=== PATIENT | male | born 1955 | race Caucasian/White ===

== ENCOUNTER 2016-10-17 13:58 | Emergency (ER) | payer MEDICAID ==
[~2016-10-17] VITALS: Ht 177.8 cm; Wt 102.1 kg
[2016-10-17 14:15] VITALS: BP 183/96
[2016-10-17 14:42] VITALS: BP 183/96
[2016-10-17] MEDS ORDERED: Norco 10mg/325mg tab ORAL ONE (14:45)
--- NOTE | 2016-10-17 20:43 | Emergency Room Report ---
History of Present Illness General Chief Complaint: Medication Refill Source: Patient Present Illness HPI The patient is a [id number] male with a history of psoriatic arthritis presenting for exacerbation of chronic pain. He states that he has been under pain management but has run out of medication. Is unable to see pain management for the next week. Pain is a 10/10 dull ache primarily to the the hands. He states this is normal for his arthritis. He was recently given a prescription for methadone. He denies any other symptoms Allergies: Coded Allergies: No Known Allergies (Unverified , 10/17/16) Patient History Past Medical History: see triage record Pertinent Family History: none Reviewed Nursing Documentation: PMH: Agreed, PSxH: Agreed Nursing Documentation-PMH Past Medical History: No History, Except For Hx Hypertension: Yes Hx Diabetes: Yes Review of Systems All Other Systems: negative except mentioned in HPI Physical Exam Vital Signs Date Time Temp Pulse Resp B/P Pulse Ox O2 Delivery O2 Flow Rate FiO2 10/17/16 14:01 97.9 79 16 183/96 98 Room Air Sp02 EP Interpretation: reviewed, normal General Appearance: no apparent distress, alert, GCS 15, non-toxic Head: normocephalic, atraumatic Eyes: bilateral eye PERRL, bilateral eye normal inspection ENT: hearing grossly normal, normal pharynx, no angioedema, normal voice Neck: full range of motion, supple/symm/no masses Musculoskeletal: decreased range of motion, swelling - bilat hands and fingers , tender - diffuse extremity pain Neurologic: alert, oriented x3, responsive, motor strength/tone normal, sensory intact, speech normal Psychiatric: judgement/insight normal, memory normal, mood/affect normal, no suicidal/homicidal ideation Skin: normal color, no rash, warm/dry, well hydrated Medical Decision Making PA Attestation Dr. Hewitt is my supervising physician. Patient management was discussed with my supervising physician Diagnostic Impression: Primary Impression: Psoriatic arthritis Additional Impressions: Encounter for medication refill Chronic pain Qualified Codes: G89.29 - Other chronic pain ER Course The patient is a [id number] male with a history of psoriatic arthritis presenting for exacerbation of chronic pain Differential diagnoses considered but not limited to: Psoriatic arthritis, rheumatoid arthritis, infection, fracture, chronic pain, pain medication seeking behavior, among others Physical exam: Afebrile. No apparent distress There is diffuse swelling and pain over both hands. Skin shows signs of psoriasis. Cures report shows 180 tablets of methadone were given on September 24 for a 30 day supply. The patient was informed that his 30 day supply did not last 30 days. He is given 1 [place] in the ER and needs to seek care by a pain management physician. He agrees. ER precautions are given Last Vital Signs Date Time Temp Pulse Resp B/P Pulse Ox O2 Delivery O2 Flow Rate FiO2 10/17/16 15:29 97.9 10/17/16 14:42 79 16 183/96 98 Room Air Status: improved Disposition: HOME, SELF-CARE Condition: Improved Referrals: NON PHYSICIAN (PCP) Patient Instructions: Medicine Refill at the Emergency Department, Chronic Pain Additional Instructions: I discussed my findings with the patient. All questions and concerns have been answered. Treatment and medication compliance have been addressed. I advised the patient that they need to follow up with PMD in 3-5 days. Return to ED if symptoms worsen, new symptoms arise, or if needed for any reason. Patient verbalized understanding of discharge instructions. You need to see pain management for further care. ROSETTE SCHULTE Oct 17, 2016 20:43
== END 2016-10-17 15:30 | disposition home or self-care (01) ==
LOC: EMR 14:40
DX: L40.50 Arthropathic psoriasis, unspecified (principal); Z76.0 Encounter for issue of repeat prescription; G89.29 Other chronic pain; I10 Essential (primary) hypertension; E11.9 Type 2 diabetes mellitus without complications
CPT/HCPCS: 99283